=== PATIENT | female | born 1955 | race Caucasian/White ===

== ENCOUNTER 2020-01-04 23:03 | Observation (INO) | payer MEDICARE, MEDICAID, OTHER ==
[2020-01-05 00:18] VITALS: BMI 38.7
[2020-01-05] MEDS ORDERED: Ondansetron ODT 4 MG TAB PO PRN (01:14)
[2020-01-05] MEDS ORDERED: Ibuprofen 600 MG TAB PO PRN (01:14)
[2020-01-05] MEDS ORDERED: Ondansetron PF 4 MG/2 ML Vial IVP PRN (01:14)
--- NOTE | 2020-01-05 01:25 | PDOC.FPRHP ---
- History of Present Illness Chief Complaint: SOB History of Present Illness: This is a 64 yo female with a pmh depression, urge incontinence who presents as a direct admit from [facility] with a cc of SOB. She was in her usual state of health and she states her symptoms have been ongoing for the last three days and are associated with fever, chills, dry cough, chest congestion, nauseas, and vomiting. She reports her fever was as high as 101 and her vomiting was non- bilious/bloody. She denies sick contacts, dizziness, recent travel, any previous lung or cardiac issues. She also endorses fatigue. She states that currently she is feeling better. She denies chest pain or palpitations ED Course: Rocephin 2g Azithromycin 500 mg Aspirin 324 mg NS 1L - Allergies/Adverse Reactions Allergies Allergy/AdvReac Type Severity Reaction Status Date / Time No Known Allergies Allergy Unverified 01/05/20 00:19 - Home Medications Medication Instructions Recorded Confirmed Type Cyclobenzaprine [Flexeril] 10 mg PO DAILY 01/05/20 01/05/20 History Oxybutynin [Ditropan] 10 mg PO DAILY 01/05/20 01/05/20 History traZODone HCl [Trazodone HCl] 150 mg PO HS 01/05/20 01/05/20 History - History PMHx: urge incontinence, insomnia, kidney cancer, CVA PSHx: Left nephrectomy, cholecystectomy, C section FHx: Father had heart disease Social: Denies JOSIE - Review of Systems General: reports: fever/chills, fatigue. denies: weight/appetite/sleep changes , night sweats Eyes: denies: eye pain, vision changes ENT: reports: nasal congestion. denies: rhinorrhea Respiratory: reports: cough, congestion, shortness of breath, exercise intolerance Cardiovascular: denies: chest pain, palpitation, edema, paroxysmal nocturnal dyspnea, orthopnea Gastrointestinal: reports: nausea, vomiting. denies: diarrhea, constipation, abdominal pain, GI bleeding Genitourinary: reports: incontinence (urge). denies: dysuria, polyuria, discharge Skin: denies: rashes, lesions Musculoskeletal: denies: pain, tenderness Neurological: denies: numbness, syncope, seizure, weakness Psychological: reports: depression. denies: anxiety - Vital signs BP: 174/78 HR: 90 RR: 20 Tmax: 100.4 Pox: 97% on ra Wt: 90 kg - Physical Exam Constitutional: NAD, awake, alert and oriented, well developed HEENT: normocephalic and atraumatic, EOMI, grossly normal vision, grossly normal hearing, MMM Neck: FROM, trachea midline, no JVD Chest: no-tender to palpation Heart: RRR, normal S1/S2, no murmurs/rubs/gallops, pulses present, no edema Lungs: CTAB, no respiratory distress, good air movement, no rales/rhonchi, no wheezing, no retractions Abdomen: soft, bowel sounds present, no masses/distention, no hernias, other ( mild diffuse ttp) Musculoskeletal: normal structure, normal tone, ROM grossly normal Neurological: CN II-XII intact, normal sensation Skin: capillary refill <2 seconds Heme/Lymphatic: no unusual bruising or bleeding Psychiatric: normal mood and affect, good judgment and insight FMR H&P: Results - Labs Result Diagrams: 01/05/20 04:41 Lab results: WBC 6.2 Hgb 13.1 Hct 40.8 Plt 146 Na 140 K 3.5 Cl 103 Bicarb 26 BUN 13 Cr 1.31 Glu 95 Lactic acid 0.9 Albumin 4.1 Bili 0.5 Troponin 0.014 BNP 19.2 - Radiology Interpretation Chest x-ray Status: image reviewed by me (LLL opacities concerning for pna) FMR H&P: A/P - Problem List (1) PNA (pneumonia) Current Visit: Yes Status: Acute Code(s): J18.9 - PNEUMONIA, UNSPECIFIED ORGANISM - Plan This is a 64 yo female with a pmh of urge incontinence, depression CAP -Admit to tele obs -S/P Rocephin and azithro, will continue -CXR consistent for LLL PNA -Pending procal -No documented hypoxia or need for O2 -Trending troponins due to SOB COVID R/O -Precautions in place -Pending test MARYLOU vs CKD -Will follow with BMP -Gentle fluids for 1 bag -Avoid nephrotoxic drugs Hx of left nephrectomy 2/2 cancer -As above Tooth ache -Tylenol -Ibuprofen 400mg max 4 doses Depression -Continue trazadone, of 27 years last July Urge incontinence -Continue oxybutinin Insomnia -Trazadone Code: Full Prophylaxis: Lovenox Family: None at bedside Fluids: LR 120ml/hr x 1 bag Diet: HH Disposition: DC in 1-2 Days PCP: Dr. Lester in [place] Addendum - Attending - Attending Attestation Date/Time: 01/05/20 2194 I personally evaluated the patient and discussed the management with Dr. Gomez. I agree with the History, Examination, Assessment and Plan documented above with any addition or exceptions noted below. Patient here for concern for pneumonia. Labs overall normal, has cough and dyspnea. Awaiting COVID result, further mgmt pending that result. Non hypoxic.
[2020-01-05 01:27] LABS: Troponin I 0.014 ng/mL (< 0.028)
[2020-01-05] MEDS ORDERED: Ibuprofen 200 MG TAB PO PRN (01:39)
[2020-01-05] MEDS ORDERED: Lactated Ringer's 1,000 ML IV SCH (01:45)
[2020-01-05 05:19] LABS: Anion Gap 11 mmol/L (10-20); BUN (Urea Nitrogen) 11 mg/dL (9.8-20.1); Calc. Creatinine Clearance 69 mL/min (70-130); Calcium 8.5 mg/dL (7.8-10.44); Carbon Dioxide 27 mmol/L (23-31); Chloride 106 mmol/L (98-107); Estimated GFR-MDRD 48; Glucose 101 mg/dL (80-115); Sodium 141 mmol/L (136-145)
[2020-01-05 05:21] LABS: Troponin I 0.029 ng/mL (< 0.028)
[2020-01-05] MEDS ORDERED: Potassium Chloride 20 MEQ TAB PO SCH (07:15)
[2020-01-05] MEDS: Oxybutynin 5 MG TAB PO SCH (08:33)
[2020-01-05] MEDS: Cyclobenzaprine 10 MG TAB PO SCH (08:33)
[2020-01-05] MEDS: Enoxaparin Sodium 40 MG/0.4 ML SYRINGE SC SCH (08:33)
[2020-01-05] MEDS ORDERED: guaiFENesin ER 600 MG TAB PO SCH (09:45)
[2020-01-05] MEDS: guaiFENesin ER 600 MG TAB PO SCH (19:49)
[2020-01-05] MEDS ORDERED: Azithromycin 250 MG TAB PO SCH (21:00)
[2020-01-05] MEDS ORDERED: traZODone HCl 150 MG TAB PO SCH (21:00)
[2020-01-05] MEDS: Acetaminophen 500 MG TAB PO PRN (21:45)
[2020-01-05] MEDS ORDERED: cefTRIAXone\\ROCEPHIN 1 GM in Sodium Chloride 0.9% 100 ML IVPB SCH (22:00)
--- NOTE | 2020-01-06 07:05 | PDOC.FM ---
- Subjective Subjective: pt resting comfortably in bed, denies dyspnea, fever. - Objective Vital Signs & Weight: Vital Signs (12 hours) Temp Pulse Resp BP Pulse Ox 01/06/20 03:24 98 F 80 22 H 125/63 95 01/05/20 21:45 81 143/66 H 01/05/20 19:55 99.2 F 82 21 H 176/68 H 95 Weight Weight 89.993 kg I&O: 01/05/20 01/06/20 01/07/20 06:59 06:59 06:59 Intake Total 800 1310 Output Total 700 400 Balance 100 910 Result Diagrams: 01/06/20 08:40 01/06/20 08:40 Phys Exam - Physical Examination Constitutional: NAD HEENT: moist MMs Neck: no JVD Respiratory: clear to auscultation bilateral Cardiovascular: RRR, no significant murmur Gastrointestinal: no distention Musculoskeletal: pulses present Neurological: moves all 4 limbs Psychiatric: normal affect Skin: no rash Dx/Plan (1) Insomnia Code(s): G47.00 - INSOMNIA, UNSPECIFIED Status: Acute (2) HTN (hypertension) Code(s): I10 - ESSENTIAL (PRIMARY) HYPERTENSION Status: Acute (3) Depressed Code(s): F32.9 - MAJOR DEPRESSIVE DISORDER, SINGLE EPISODE, UNSPECIFIED Status : Acute (4) Tooth ache Code(s): K08.89 - OTHER SPECIFIED DISORDERS OF TEETH AND SUPPORTING STRUCTURES Status: Acute (5) PNA (pneumonia) Code(s): J18.9 - PNEUMONIA, UNSPECIFIED ORGANISM Status: Acute (6) COVID-19 virus infection Code(s): U07.1 - COVID-19 Status: Acute - Plan Plan: CAP vs URI -fever, cxr abnormalities on admission - Rocephin and azithro COVID R/O -pend results MARYLOU vs CKD -monitor -Avoid nephrotoxic drugs Hx of left nephrectomy 2/2 cancer -As above Tooth ache -Tylenol -Ibuprofen 400mg max 4 doses Depression -Continue trazadone, of 27 years last July Urge incontinence -Continue oxybutinin Insomnia -Trazadone Code: Full Prophylaxis: Lovenox Disposition: continue tx, monitor kidney fxn Addendum - Attending - Attending Attestation Date/Time: 01/06/20 1126 I personally evaluated the patient and discussed the management with Dr. Oates. I agree with the History, Examination, Assessment and Plan documented above with any addition or exceptions noted below. Patient doing well. Improved breathing. She has been determined to be COVID positive. She is not hypoxic and not requiring O2. Will discuss with her the importance of social isolation and monitoring her symptoms but she might be able to be discharged today.
[2020-01-06] MEDS: guaiFENesin ER 600 MG TAB PO SCH (08:54)
[2020-01-06] MEDS: Oxybutynin 5 MG TAB PO SCH (08:54)
[2020-01-06] MEDS: Cyclobenzaprine 10 MG TAB PO SCH (08:54)
[2020-01-06] MEDS: Enoxaparin Sodium 40 MG/0.4 ML SYRINGE SC SCH (08:55)
[2020-01-06 09:05] LABS: Anion Gap 14 mmol/L (10-20); BUN (Urea Nitrogen) 10 mg/dL (9.8-20.1); Calc. Creatinine Clearance 76 mL/min (70-130); Calcium 8.8 mg/dL (7.8-10.44); Carbon Dioxide 21 mmol/L (23-31); Chloride 107 mmol/L (98-107); Estimated GFR-MDRD 53; Glucose 83 mg/dL (80-115); Sodium 138 mmol/L (136-145)
[2020-01-06 09:08] LABS: #Monocytes 0.5 thou/uL (0.11-0.59); %Eosinophils 0.8 % (0.0-10.0); %Lymphocytes 35.6 % (21.0-51.0); %Monocytes 8.8 % (0.0-10.0); %Neutrophils 54.8 % (42.0-75.0); Mean Corpuscular HGB CONC 32.9 g/dL (32.0-36.0); Mean Corpuscular Hemoglobin 29.7 pg (27.0-31.0); Mean Corpuscular Volume 90.2 fL (78.0-98.0); Red Blood Cell (RBC) Count 4.06 mill/uL (4.20-5.40); White Blood Cell (WBC) Count 5.6 thou/uL (4.8-10.8)
[2020-01-06 09:24] LABS: Platelet Count 119 thou/uL (130-400); Platelet Morphology Comment Appears Decreased; RBC Morphology Normal
[2020-01-06 13:39] VITALS: BP 143/67; TEMP 100.8
[2020-01-06] MEDS: Acetaminophen 500 MG TAB PO PRN (14:35)
--- NOTE | 2020-01-07 11:23 | DIS ---
DATE OF ADMISSION: 01/05/2020 DATE OF DISCHARGE: 01/06/2020 ADMITTING ATTENDING: Akin Curry MD DISCHARGE ATTENDING: Akin Curry MD CONSULTS: None. IMAGING: Chest x-ray suspicious for pneumonia. DISCHARGE MEDICATIONS: 1. Oxybutynin 10 mg p.o. daily. 2. Flexeril 10 mg p.o. daily. 3. Trazodone 150 mg p.o. at bedtime. 4. Azithromycin 250 mg p.o. at bedtime. 5. Guaifenesin 1200 mg p.o. q.12 hours. DISCHARGE DIAGNOSIS: COVID-19 infection. SECONDARY DIAGNOSES: 1. Acute kidney injury. 2. Tooth pain. 3. Depression. 4. Urge incontinence. 5. Insomnia. HISTORY OF PRESENT ILLNESS/HOSPITAL COURSE: Ms. Danielle is a 64-year-old female with past medical history significant for depression and urge incontinence, presented to us as a direct admission from the [place] [facility] with a chief complaint of shortness of breath, fever, chills, dry cough and congestion, sepsis and some vomiting that was nonbilious, nonbloody. She reports having some fatigue, but otherwise feeling better the patient was started on Rocephin and was subsequently admitted to observation for further evaluation and monitoring. The patient did well, did not require any oxygen. Laboratory values normalized. MARYLOU improved. The patient was continued on antibiotics and continued to be stable. COVID result came back positive. The patient continued to not require any oxygen and fevers resolved as well. The patient was thought to be out of window for respiratory distress related to COVID infections issue. Deemed stable for discharge home on antibiotics with instructions to return if shortness of breath should return. DISCHARGE INSTRUCTIONS: 1. Location: Home. 2. Diet: Regular. 3. Activity: As tolerated. 4. Followup: Follow up with PCP in the next 3 to 7 days. Job ID: [id number] [facility]
== END 2020-01-06 15:13 | disposition home or self-care (01) ==
LOC: 2SW 01-05 00:16
PROVIDERS: ADMIT Emergency Medicine; ATTEND Emergency Medicine
DX: U07.1 COVID-19 (principal); J12.89 Other viral pneumonia; N17.9 Acute kidney failure, unspecified; F32.9 Major depressive disorder, single episode, unspecified; N39.41 Urge incontinence; G47.00 Insomnia, unspecified; K08.89 Other specified disorders of teeth and supporting structures; Z79.899 Other long term (current) drug therapy; Z11.59 Encounter for screening for other viral diseases
CPT/HCPCS: 80048 ×2; 84145 ×2; 84484 ×2; 85025; 96365; 96372 ×2; 97139 ×2; G0378 ×2; 36415; J0696; J1650; J3490